=== PATIENT | male | born 1980 | race Caucasian/White ===

== ENCOUNTER 2020-02-18 10:04 | Inpatient (IN) ==
--- NOTE | 2020-02-04 10:01 | PAT Medication Instructions ---
Medication Instructions Date of Service February 04, 2020 Home Medications acetaminophen [Tylenol] 325 mg PO QID PRN aripiprazole [Abilify] 15 mg PO BID atorvastatin 40 mg PO HS buspirone 10 mg PO TID gabapentin 400 mg PO TID ibuprofen 200 mg PO Q6H PRN pantoprazole 20 mg PO HS sertraline [Zoloft] 200 mg PO HS ASK your surgeon for instructions ibuprofen 200 mg PO Q6H PRN Take morning of surgery With a small sip of water, OTHERWISE NOTHING TO EAT OR DRINK AFTER MIDNIGHT: acetaminophen [Tylenol] 325 mg PO QID PRN (okay to take up to 4 hours prior to surgery if needed) aripiprazole [Abilify] 15 mg PO BID buspirone 10 mg PO TID gabapentin 400 mg PO TID Take evening before surgery acetaminophen [Tylenol] 325 mg PO QID PRN (if needed) aripiprazole [Abilify] 15 mg PO BID atorvastatin 40 mg PO HS buspirone 10 mg PO TID gabapentin 400 mg PO TID pantoprazole 20 mg PO HS sertraline [Zoloft] 200 mg PO HS Other Notes If you have any questions please call us at [phone] or [phone] or [phone] or [phone]
--- NOTE | 2020-02-05 12:53 | Anesthesiology Consultation ---
Date of Service February 05, 2020 Assessment & Plan (1) Encounter for pre-operative examination: Chart Review Chart Review: Pending: Refer to Additional Notes / Consult section (pending surgeon ordered PCP clearance and preop Covid testing ) and Patient seen in Pre Admission Testing Informed surgeon's office re: leukocytosis ( will also send preop testing to PCP for review at surgeon ordered PCP clearance scheduled 02/12/20) - Check BSG AM DOS Per PAT appt on 02/05/20, patient traveled to [place] >2 weeks ago. Wears PPE in public. No known Covid positive contacts or Covid related symptoms. Scheduled for preop Covid testing 02/13/20 with surgeon's office. Educated on importance of self quarantining, social distancing and wearing mask in public both for the patient and household contacts. Teaching & Discussion Pre-Anesthesia Teaching/Discussion Notes: Instructed NPO after midnight before surgery,except medications with 15 cc of water. Medication instructions provided according to the PAT guidelines. History Surgery Operation Date: 02/18/20 09:10 Proposed Procedures p L4-S1 Decompression and Fusion, Spinal Cord Monitoring - Abdulkadir Bryant, Height/Weight Height: 5 ft 11 in Weight: 94.4 kg Allergies Allergy/AdvReac Type Severity Reaction Status Date / Time pneumococcal vaccine Allergy Unknown SEVERE Verified 01/30/20 12:20 LYMPH NODE SWELLING trazodone Allergy Unknown Photosensit Verified 01/30/20 12:20 ivity bupropion AdvReac Unknown INTOLERANCE Verified 01/30/20 12:20 Flu Virus Vaccine Allergy Unknown SEVERE Uncoded 01/30/20 12:20 LYMPH NODE SWELLING Medications Home Medications Medication Instructions Recorded Confirmed Last Taken acetaminophen [Tylenol] 325 mg PO QID PRN 01/30/20 01/30/20 Unknown aripiprazole [Abilify] 15 mg PO BID 01/30/20 01/30/20 Unknown atorvastatin 40 mg PO HS 01/30/20 01/30/20 Unknown buspirone 10 mg PO TID 01/30/20 01/30/20 Unknown gabapentin 400 mg PO TID 01/30/20 01/30/20 Unknown ibuprofen 200 mg PO Q6H PRN 01/30/20 01/30/20 Unknown pantoprazole 20 mg PO HS 01/30/20 01/30/20 Unknown sertraline [Zoloft] 200 mg PO HS 01/30/20 01/30/20 Unknown Past Medical History Medical History Asthma No inhalers- well controlled and stable COPD (chronic obstructive pulmonary disease) Controlled and stable Depression Deviated nasal septum Nasal congestion - planning on nasal surgery in the future DM type 2 (diabetes mellitus, type 2) diet controlled Fibromyalgia Chronic pain stable GERD (gastroesophageal reflux disease) Well controlled and stable Hiatal hernia History of pulmonary embolism 2-3 years ago; treated with coumadin; MTHFR- off AC x 1-2 years - no issues Hyperlipidemia IBS (irritable bowel syndrome) MTHFR mutation Follows only with PCP- no AC needed. PTSD (post-traumatic stress disorder) Tinnitus Exercise / Class Metabolic Activity II 4-5 Yardwork/Stairs/Walk up hill (one flight of stairs- no chest pain or SOB ) Past Family History Family History Grandmother No problems noted. Grandmother (Maternal) Esophageal cancer Grandmother (Paternal) Diabetes Other No family history of adverse response to anesthesia Past Surgical History Surgical History History of carpal tunnel release of both wrists History of colonoscopy History of esophagogastroduodenoscopy (EGD) History of lumbar surgery History of myringotomy BMT History of shoulder surgery Rt History of wisdom tooth extraction Past Anesthesia History No Hx of Anesthesia Complications and No Family Hx of Anesthesia Complications History of PONV No Hx of PONV and No Hx of Motion Sickness Social History Smoking Status: Current every day smoker tobacco type: cigarettes Smoking cigarettes per day: 1 ppd Do You Dip or Chew Tobacco: Yes Smoking End Date: 1 can every week Hx Alcohol Use: Yes alcohol intake frequency: holidays/special occasions only Hx Substance Use: No substance use type: does not use Review of Systems Occ snoring- no witnessed apnea. Hx of sleep study 15 years ago- no JP Patient denies chest pain, shortness of breath, dyspnea on exertion, cough, wheezing, palpitations. No hx of seizures, stroke, ME. No hx of blood transfusions Physical Exam Vital Signs VITALS BP 102/68 P 78 TEMP 97.9 SP02 97% RESP 16 Constitutional no acute distress ENMT Mouth: no TMJ clicking Thyromental Distance: > or= 3.5 Finger Breadths (3.5) Mallampati Class: I Missing molars Neck neck extension not limited Respiratory normal respiratory effort; no respiratory distress Auscultation: lungs clear to auscultation bilaterally; no wheezes Cardiovascular Rate/Rhythm: regular rate and regular rhythm Heart Sounds: no murmur Vessels: no carotid bruit Musculoskeletal Spine: no pain with cervical ROM Neurologic moves all extremities Psychiatric Orientation: alert Testing Laboratory Results 02/05/20 13:28 02/05/20 13:28 PT 10.1 Seconds (9.0-12.0) 02/05/20 13:28 INR 1.0 (0.9-1.1) 02/05/20 13:28 APTT 24.8 Seconds (21.0-31.0) 02/05/20 13:28 Hemoglobin A1c 6.1 % (4.5-5.6) H 02/05/20 13:28 Urine Color Yellow 02/05/20 13:28 Urine Appearance Clear (Clear) 02/05/20 13:28 Urine pH 6.5 (4.5-7.5) 02/05/20 13:28 Ur Specific Tyler 1.008 (1.000-1.030) 02/05/20 13:28 Urine Protein Negative (Negative) 02/05/20 13:28 Urine Glucose (UA) Negative (Negative) 02/05/20 13:28 Urine Ketones Negative (Negative) 02/05/20 13:28 Urine Nitrite Negative (Negative) 02/05/20 13:28 Ur Leukocyte Esterase Negative (Negative) 02/05/20 13:28 Blood Type A Positive 02/05/20 13:28 Antibody Screen NEGATIVE 02/05/20 13:28 Electrocardiogram Date: 02/05/20 Findings: + NSR @ (64) Chest X-Ray Date: 01/20/20 Findings: + NAD
[2020-02-05 15:31] LABS: Basophils # (auto) 0.05 K/uL (0-0.2); Basophils % (auto) 0.4 %; Eosinophils # (auto) 0.26 K/uL (0-0.5); Eosinophils % (auto) 1.9 %; Hematocrit (blood only) 46.3 % (42-52); Hemoglobin 15.9 g/dL (14.0-18.0); Immature Granulocytes # (auto) 0.06 K/uL (0.00-0.02); Immature Granulocytes % (auto) 0.4 %; Lymphocytes % (auto) 26.6 %; Mean Corpuscular Hemoglobin 32.3 pg (25-34); Mean Corpuscular Hgb Conc 34.3 g/dL (32-36); Mean Corpuscular Volume 93.9 fL (80-100); Mean Platelet Volume 9.6 fL (7.4-10.4); Monocytes # (auto) 1.25 K/uL (0.11-0.59); Monocytes % (auto) 9.2 %; Neutrophils # (auto) 8.31 K/uL (1.4-6.5); Neutrophils % (auto) 61.5 %; Platelet Count 261 K/uL (130-400); RDW Standard Deviation 44.9 fL (36.4-46.3); Red Blood Count 4.93 M/uL (4.7-6.1); White Blood Count 13.53 K/uL (4.8-10.8)
[2020-02-05 15:37] LABS: BUN Creatinine Ratio 7.3 (10-20); Calcium 9.6 mg/dl (8.5-10.1); Creatinine Clr Calc Pharmacy 107.6 ml/min; Est GFR (African American) 100.5; Est GFR (Non-African American) 86.7; Potassium 4.1 mmol/L (3.5-5.1)
[2020-02-05 15:46] LABS: Partial Thromboplastin Ratio 0.9; Partial Thromboplastin Time 24.8 Seconds (21.0-31.0); Prothrombin Time 10.1 Seconds (9.0-12.0)
[2020-02-05 15:51] LABS: Appearance Urine Clear (Clear); Bilirubin Urine Negative (Negative); Blood Urine Negative (Negative); Color Urine Yellow; Glucose Urine UA Negative (Negative); Ketones Urine Negative (Negative); Leukocyte Esterase Urine Negative (Negative); Nitrite Urine Negative (Negative); Protein Urine Negative (Negative); Specific Gravity Urine 1.008 (1.000-1.030); Urobilinogen Urine Negative (Negative); pH Urine 6.5 (4.5-7.5)
[2020-02-06 06:38] LABS: Estimated Average Glucose 128 mg/dl; Hemoglobin A1C 6.1 % (4.5-5.6)
--- NOTE | 2020-02-06 06:51 | Electrocardiogram Report ---
Test Reason : Blood Pressure : / mmHG Vent. Rate : 064 BPM Atrial Rate : 064 BPM P-R Int : 186 ms QRS Dur : 078 ms QT Int : 374 ms P-R-T Axes : 021 070 066 degrees QTc Int : 385 ms Normal sinus rhythm Normal ECG No previous ECGs available Confirmed by Jareth Atkinson ([id number]) on 02/06/2020 6:50:59 AM Referred By: Abdulkadir Bryant Confirmed By:Jareth Atkinson
[~2020-02-18 10:04] MED LIST: ACETAMINOPHEN 500 MG TAB PO SCH; CEFAZOLIN 2000MG 2,000 MG/15 ML SYR IV SCH; CeleBREX 200 MG CAP PO SCH; GABAPENTIN 900 MG DOSE PO SCH; LR 15ML/HR IV SCH
[2020-02-18] MEDS ORDERED: HYDROmorphone INJ 1 MG/ML SYRINGE IV PRN ×2 (11:10→15:54)
[2020-02-18] MEDS ORDERED: ePHEDrine sulfate 50 MG/ML AMP IV PRN (11:10)
[2020-02-18] MEDS ORDERED: ATROPINE SULFATE 0.1 MG/ML 10ML SYR IV PRN (11:10)
[2020-02-18] MEDS ORDERED: ONDANSETRON INJ 2 MG/ML 2 ML VIAL IV PRN ×2 (11:10→15:54)
--- NOTE | 2020-02-18 11:28 | History & Physical Bridge Note ---
Date of Service February 18, 2020 History & Physical Bridge Note I have examined the patient, reviewed the History & Physical and in the interval since the performance of the History & Physical I have noted the following changes of clinical significance: no changes noted
--- NOTE | 2020-02-18 11:29 | History & Physical Report ---
Date of Service February 18, 2020 Assessment & Plan (1) Neurogenic claudication due to lumbar spinal stenosis: Admission and Anticipated Discharge Date Admission Date: L4-S1 decompression fusion History of Present Illness Chief Complaint: Back and bilateral leg pain Primary Care Provider: Steven Hubbard This is a 39-year-old male who presents with chronic persistent back and leg pain after failed extensive course of nonoperative care is here for surgical intervention. Allergies Allergy/AdvReac Type Severity Reaction Status Date / Time pneumococcal vaccine Allergy Unknown SEVERE Verified 02/18/20 10:34 LYMPH NODE SWELLING trazodone Allergy Unknown Photosensit Verified 02/18/20 10:34 ivity bupropion AdvReac Unknown mood Verified 02/18/20 10:34 instability Flu Virus Vaccine Allergy Unknown SEVERE Uncoded 02/18/20 10:34 LYMPH NODE SWELLING Home Medications Home Medications Medication Instructions Recorded Confirmed Type acetaminophen [Tylenol] 325 mg PO QID PRN 01/30/20 02/18/20 History aripiprazole [Abilify] 15 mg PO BID 01/30/20 02/18/20 History atorvastatin 40 mg PO HS 01/30/20 02/18/20 History buspirone 10 mg PO TID 01/30/20 02/18/20 History gabapentin 400 mg PO TID 01/30/20 02/18/20 History ibuprofen 200 mg PO Q6H PRN 01/30/20 02/18/20 History pantoprazole 20 mg PO HS 01/30/20 02/18/20 History sertraline [Zoloft] 200 mg PO HS 01/30/20 02/18/20 History Past Med/Surg History Medical History Asthma No inhalers- well controlled and stable COPD (chronic obstructive pulmonary disease) Controlled and stable Depression Deviated nasal septum Nasal congestion - planning on nasal surgery in the future DM type 2 (diabetes mellitus, type 2) diet controlled Fibromyalgia Chronic pain stable GERD (gastroesophageal reflux disease) Well controlled and stable Hiatal hernia History of pulmonary embolism 2-3 years ago; treated with coumadin; MTHFR- off AC x 1-2 years - no issues Hyperlipidemia IBS (irritable bowel syndrome) MTHFR mutation Follows only with PCP- no AC needed. PTSD (post-traumatic stress disorder) Tinnitus Surgical History History of carpal tunnel release of both wrists History of colonoscopy History of esophagogastroduodenoscopy (EGD) History of lumbar surgery History of myringotomy BMT History of shoulder surgery Rt History of wisdom tooth extraction Family History Grandmother No problems noted. Grandmother (Maternal) Esophageal cancer Grandmother (Paternal) Diabetes Other No family history of adverse response to anesthesia Social History Smoking Status: Current every day smoker Cigarettes Per Day: 1 ppd; Smoking End Date: 1 can every week; Second Hand Exposure: Yes; Do You Dip or Chew Tobacco: Yes; Tobacco Cessation Education Requested by Patient: No Hx Alcohol Use: Yes Hx Substance Use: No Preferred Language: Dutch Communication Ability: Effective Dining Car Server Required: No Beliefs That Will Affect Care: None Current Living Situation: Parent Feels Safe at Home: Yes Safety Concerns: Feels Safe At This Time Physical Exam Physical Exam: Patient is alert and alert and neurologically intact. Regular rate and rhythm. Lungs clear to auscultation. Results & Data ([facility]) Vital Signs (Past 12 Hours) Vital Signs Temp Pulse Resp BP Pulse Ox 02/18/20 10:31 36.6 C 79 18 129/78 98
[2020-02-18] MEDS ORDERED: BUPIVACAINE/EPINEPHRINE 0.25% 1:200,000 30 ML VIAL ONE (11:45)
[2020-02-18] MEDS ORDERED: BACITRACIN INJ 50,000 UNIT VIAL ONE (11:45)
[2020-02-18] MEDS ORDERED: PROPOFOL IV EMULSION 10 MG/ML 20 ML VIAL IV ONE (11:47)
[2020-02-18] MEDS ORDERED: LIDOCAINE HCL 2% 2 ML VIAL/AMP(20MG/ML) INFIL ONE (11:47)
[2020-02-18] MEDS ORDERED: LARYING-O-JET KIT (LTA) ONE (11:47)
[2020-02-18] MEDS ORDERED: HYDROmorphone INJ 2 MG/ML SYR/VIAL ONE (11:47)
[2020-02-18] MEDS ORDERED: DEXAMETHASONE SOD INJ 4 MG/ML VIAL ONE (11:47)
[2020-02-18] MEDS ORDERED: MIDAZOLAM HCL 1 MG/ML 2ML VIAL ONE (11:47)
[2020-02-18] MEDS ORDERED: ONDANSETRON INJ 2 MG/ML 2 ML VIAL ONE (11:47)
[2020-02-18] MEDS ORDERED: FLOSEAL HEMOSTATIC MATRIX 10ML TOP ONE (12:46)
[2020-02-18] MEDS ORDERED: ePHEDrine sulfate 50 MG/ML SYR ONE (12:55)
--- NOTE | 2020-02-18 13:59 | Operative Report ---
Post Operative Report Pre & Post Diagnosis Operation Date: 02/18/20 11:55 Pre-Op Diagnosis: Neurogenic claudication due to lumbar spinal stenosis Post-Op Diagnosis: Neurogenic claudication due to lumbar spinal stenosis I identified the patient and participated in the time-out.: Yes Procedure Operation Date: 02/18/20 11:55 Actual Procedures #1 revision decompression with bilateral medial facetectomies foraminotomies L4- 5 and L5-S1. #2 posterior spinal fusion L4-5 L5-S1. #3 placement posterior instrumentation L4-5 L5-S1. #4 interbody fusion L4-5 L5-S1. #5 placement peek cage 12 x 26 mm at L4-5 and 9 x 26 mm at L5-S1. #6 placement of locally harvested morselized autograft in the posterior lateral gutters. #7 placement infuse collagen sponge and master graft in the posterior lateral gutters and ostial amp and interbody space. Surgeon Abdulkadir Bryant, Preschool Paraprofessional Tabitha Boles Estimated Blood Loss 100 Findings Consistent with Post-Op Diagnosis Specimens None Indications This is a 39-year-old male who presents above-mentioned diagnosis after failing extensive course of nonoperative care is here for surgical invention. Description of Procedure Patient was met with identified informed consent obtained. Patient was then taken to the operative suite underwent an patient placed in a prone position the Corky table on top of the Jean frame. All bony prominences well-padded eyes inspected to ensure no external pressure placed upon them. This point the lumba r spine is prepped and draped in normal sterile fashion. Sharp dissection with assistance of Bovie cautery was performed down to and exposing the remaining lamina and transverse processes of L4-L5 and sacral ala bilaterally. From a caudal cephalad fashion revision complete laminectomy L5 and L4 was performed including bilateral medial facetectomies and foraminotomies addressing all neural compression. Pedicle screws then placed in L4-L5 and S1 levels bilaterally with assistance of fluoroscopy the proper sized nigel placed. By way of a trans-foramen approach on the right a complete discectomy of L 5 S1 was performed endplates curetted to subcortical being bone and a 9 x 26 mm peek cage filled with osteo-bone graft tapped in position. Then proceeded L4-[address] of a transforaminal approach on the right complete discectomy performed endplates coated to subcortical bleeding bone and a 12 x 26 mm peek cage filled with osteo-bone graft tapped in position. The rods and locked in final position bilaterally. The transverse processes of L4-L5 and the sacral ala burred to subcortical bleeding bone. Infuse collagen sponge master graft and local autograft placed in the posterior lateral gutters. 10 round VINCENT drain inserted. The incision was then closed with 1 Vicryl the fascia 2-0 Vicryl subcutaneously and 4 Monocryl for final skin closure. Steri-Strip sterile dressings placed. Patient waken taken PACU stable condition. Please note Tabitha Boles was present at the entire procedure involved the patient positioning complex portions of the surgery and fascial closure. Lastly spinal cord monitoring was utilized at the procedure no changes noted. I attest to the content of the Intraoperative Record and any orders documented therein. Any exceptions are noted below.
--- NOTE | 2020-02-18 14:04 | Fluoroscopy Report ---
INTRAOPERATIVE RADIOGRAPHS CLINICAL HISTORY: L4-S1 spinal fusion. Fluoroscopy time: 18 seconds. FINDINGS: 2 spot fluoroscopic views of the lumbar spine are presented. There has been discectomy at L 4-L5 and L5-S1 with laminectomy and posterior fusion from L4-S1. Interpedicular screws are seen at al l levels. The orthopedic hardware appears intact. IMPRESSION: Intraoperative images from L4-S1 spinal fusion surgery as above. Electronically signed by: Leonardo Tinoco M.D. 02/18/2020 2:03 PM
--- NOTE | 2020-02-18 14:40 | Anesthesiology Progress Note ---
Date of Service February 18, 2020 Anesthesia Post Procedure Vital Signs Vital Signs: Temp Pulse Pulse Resp BP BP Pulse Ox 02/18/20 14:15 98.8 F 71 12 110/68 98 02/18/20 10:31 97.9 F 79 18 129/78 98 Pain Intensity Lower Back: Pain Intensity: 4 Transfer of Care Handoff Completed per policy Notes Mental Status: alert / awake / arousable and participated in evaluation Patient Amnestic to Procedure: Yes Nausea / Vomiting: adequately controlled Pain: adequately controlled Airway Patency, RR, SpO2: stable & adequate BP & HR: stable & adequate Hydration State: stable & adequate Anesthetic Complications: no major complications apparent and Pt Satisfied with anesthetic care
[2020-02-18] MEDS: fentaNYL citrate 100 MCG/2 ML VIAL IV PRN ×3 (14:41→15:07)
[2020-02-18] MEDS ORDERED: SOD PHOSPHATE/SOD BIPHOSPHATE ENEMA 132 ML BTL PR PRN (15:54)
[2020-02-18] MEDS ORDERED: ACETAMINOPHEN 1,000 MG/100 ML VIAL IV PRN (15:54)
[2020-02-18] MEDS ORDERED: NALOXONE HCL 0.4 MG/1 ML VIAL/CARP IV PRN (15:54)
[2020-02-18] MEDS ORDERED: TRAMADOL HCL 50 MG TABLET PO PRN (15:54)
[2020-02-18] MEDS ORDERED: LORazepam 0.5 MG TAB PO PRN (15:54)
[2020-02-18] MEDS ORDERED: DO NOT ADMINISTER PNEUMOCOCCAL VACCINE PRN (15:54)
[2020-02-18] MEDS ORDERED: HYDROmorphone INJ 0.5 MG/0.5 ML SYR IV PRN (15:54)
[2020-02-18] MEDS ORDERED: MAGNESIUM HYDROXIDE SUSP 30 ML UDC PO PRN (15:54)
[2020-02-18] MEDS ORDERED: METOCLOPRAMIDE HCL INJ 5 MG/ML 2 ML VIAL IV PRN (15:54)
[2020-02-18] MEDS ORDERED: ONDANSETRON 4 MG OD TAB PO PRN (15:54)
[2020-02-18] MEDS ORDERED: bisacodyL 10 MG SUPP PR PRN (15:54)
[2020-02-18] MEDS ORDERED: PROMETHAZINE HCL 12.5 MG in SODIUM CHLORIDE 0.9% 50 ML IV PRN (15:54)
[2020-02-18] MEDS ORDERED: ALUMINUM/MAGNESIUM SUSP 30 ML UDC PO PRN (15:54)
[2020-02-18] MEDS ORDERED: LORazepam 0.5 MG/1 ML VIAL IV PRN (15:54)
[2020-02-18] MEDS ORDERED: FAMOTIDINE 20 MG TAB PO PRN (15:54)
[2020-02-18] MEDS ORDERED: DO NOT ADMINISTER FLU VACCINE PRN (15:54)
[2020-02-18] MEDS: GABAPENTIN 400 MG CAP PO SCH ×2 (17:00→21:52)
[2020-02-18] MEDS: KETOROLAC 30 MG/ML VIAL IV SCH ×2 (17:22→23:38)
[2020-02-18] MEDS: LACTATED RINGER'S 1,000 ML IV SCH ×2 (17:23→23:37)
[2020-02-18] MEDS: CEFAZOLIN 2000MG 2,000 MG/15 ML SYR IV SCH (19:34)
[2020-02-18] MEDS: OXYCODONE HCL IR 5 MG TAB (IMMEDIATE RELEASE) PO PRN (19:34)
[2020-02-18] MEDS: SERTRALINE HCL 100 MG TABLET PO SCH (19:34)
[2020-02-18] MEDS: ATORVASTATIN 40 MG TAB PO SCH (19:35)
[2020-02-18] MEDS: PANTOprazole 40 MG TAB PO SCH (19:35)
[2020-02-18] MEDS: DOCUSATE SODIUM/SENNA 50/8.6MG TAB PO SCH (19:35)
[2020-02-18] MEDS: ARIPiprazole 15 MG TAB PO SCH (19:35)
[2020-02-18] MEDS ORDERED: PHARMACY GLYCEMIC MGMT CONSULT PRN (21:35)
[2020-02-18] MEDS: INSULIN ASPART 100 UNITS/ML 3 ML PEN SC SCH (23:46)
[2020-02-19] MEDS: INSULIN ASPART 100 UNITS/ML 3 ML PEN SC SCH ×5 (04:40→20:45)
[2020-02-19] MEDS: KETOROLAC 30 MG/ML VIAL IV SCH ×2 (04:40→10:33)
[2020-02-19] MEDS: CEFAZOLIN 2000MG 2,000 MG/15 ML SYR IV SCH (04:43)
[2020-02-19] MEDS: POLYETHYLENE (MIRALAX) 17 GM PACK PO SCH ×3 (04:59→17:40)
[2020-02-19 06:31] LABS: Basophils # (auto) 0.01 K/uL (0-0.2); Hematocrit (blood only) 35.6 % (42-52); Hemoglobin 12.2 g/dL (14.0-18.0); Immature Granulocytes # (auto) 0.07 K/uL (0.00-0.02); Immature Granulocytes % (auto) 0.3 %; Lymphocytes # (auto) 2.21 K/uL (1.2-3.4); Lymphocytes % (auto) 10.6 %; Mean Corpuscular Hemoglobin 31.8 pg (25-34); Mean Corpuscular Hgb Conc 34.3 g/dL (32-36); Mean Corpuscular Volume 92.7 fL (80-100); Monocytes # (auto) 1.41 K/uL (0.11-0.59); Monocytes % (auto) 6.8 %; Neutrophils # (auto) 17.08 K/uL (1.4-6.5); Neutrophils % (auto) 82.3 %; Platelet Count 220 K/uL (130-400); RDW Coefficient of Variation 12.9 % (11.5-14.5); RDW Standard Deviation 43.5 fL (36.4-46.3); Red Blood Count 3.84 M/uL (4.7-6.1); White Blood Count 20.78 K/uL (4.8-10.8)
[2020-02-19 07:05] LABS: BUN Creatinine Ratio 12.5 (10-20); Calcium 8.7 mg/dl (8.5-10.1); Creatinine Clr Calc Pharmacy 101.8 ml/min; Est GFR (African American) 95.1; Potassium 3.8 mmol/L (3.5-5.1)
[2020-02-19] MEDS: ARIPiprazole 15 MG TAB PO SCH ×2 (07:24→20:17)
[2020-02-19] MEDS: GABAPENTIN 400 MG CAP PO SCH ×3 (07:25→20:17)
[2020-02-19] MEDS ORDERED: Nursing to Pharmacy Communication SCH (07:45)
--- NOTE | 2020-02-19 08:38 | Orthopedic Progress Note ---
Date of Service February 19, 2020 Assessment & Plan (1) Neurogenic claudication due to lumbar spinal stenosis: Admission and Anticipated Discharge Date Admission Date: February 18, 2020 At this time we will continue physical therapy monitor VINCENT output anticipate discharge home the next few days. Subjective Back pain controlled leg pain markedly improved. Physical Exam Physical Exam: Patient is good strength testing appears comfortable. Results & Data ([facility]) Vital Signs (Past 12 Hours) Vital Signs Temp Pulse Pulse Resp BP BP Pulse Ox 02/19/20 07:40 36.7 C 66 16 97/59 L 96 02/19/20 04:20 36.7 C 75 14 94/54 L 97 02/18/20 23:49 36.9 C 70 14 94/56 L 97/58 L 95
[2020-02-19] MEDS ORDERED: NovoLIN-N (NPH) PER UNIT CHARGE SQ ONE (09:00)
[2020-02-19] MEDS: DEXAMETHASONE SOD PHOSPHATE 8 MG in SYRINGE 0 ML IV SCH (09:10)
--- NOTE | 2020-02-19 11:13 | Pharmacy Report ---
Pharmacy Glycemic Short Note 2 - Date of Service February 19, 2020 - Glycemic Short BSG Results (Last 24 hours): 02/18/20 02/18/20 02/18/20 14:15 20:39 23:41 Glucose POC Glucose 130 H 211 H 158 H 02/19/20 02/19/20 02/19/20 04:39 06:00 08:23 Glucose 133 H POC Glucose 149 H 138 H OUTPATIENT ANTIDIABETIC REGIMEN: * N/A- diet controlled (previous insulin use) * A1c 6.1% 02/05/20 ASSESSMENT: * Mr. Dominguez is not currently on any pharmacological anti-diabetes medications, controlled with diet * Patient received 8 mg of dexamethasone IV in the OR yesterday and is now ordered 8 mg IV daily * BSG elevated last night but was corrected well with novolog, given ongoing dexamethasone will give 1x dose of NPH ~0.2 units/kg this morning- this is reduced from the typical 0.4 units/kg as patient BSGs close to ranged yesterday without. Further doses will be determine by BSG trend * Will continue current novolog parameters carb ratio weight based stress of 3 and correction factor 20. PLAN FOR INPATIENT GLYCEMIC CONTROL: * Hold outpatient oral diabetes medications * Basal insulin * NPH 18 units x 1 this AM * Bolus insulin * NovoLog per scale ACHS or Q6hrs while NPO * Goal Range: Low 110 mg/dL - High 140 mg/dL * Correction Factor: 20 mg/dL/unit * Nutritional / Prandial insulin per carb ratio of 1 unit per 6 grams CHO consumed PLAN FOR DISCHARGE: * Patient's A1c 6.1% within goal range, continue current outpatient treatment.
[2020-02-19] MEDS: OXYCODONE HCL IR 5 MG TAB (IMMEDIATE RELEASE) PO PRN ×2 (11:52→16:20)
[2020-02-19] MEDS ORDERED: NICOTINE 21 MG/24 HR TDSY TD ONE (14:30)
[2020-02-19] MEDS: ACETAMINOPHEN 500 MG TAB PO PRN (15:02)
[2020-02-19] MEDS: ATORVASTATIN 40 MG TAB PO SCH (20:17)
[2020-02-19] MEDS: SERTRALINE HCL 100 MG TABLET PO SCH (20:17)
[2020-02-19] MEDS: DOCUSATE SODIUM/SENNA 50/8.6MG TAB PO SCH (20:17)
[2020-02-19] MEDS: PANTOprazole 40 MG TAB PO SCH (20:17)
[2020-02-19] MEDS ORDERED: INSULIN ASPART 100 UNITS/ML 3 ML PEN SC SCH (22:00)
[2020-02-20] MEDS: ACETAMINOPHEN 500 MG TAB PO PRN (00:02)
[2020-02-20] MEDS: POLYETHYLENE (MIRALAX) 17 GM PACK PO SCH ×4 (00:03→17:08)
[2020-02-20] MEDS: DEXAMETHASONE SOD PHOSPHATE 8 MG in SYRINGE 0 ML IV SCH (07:23)
[2020-02-20] MEDS: OXYCODONE HCL IR 5 MG TAB (IMMEDIATE RELEASE) PO PRN ×3 (07:24→23:30)
[2020-02-20] MEDS: ARIPiprazole 15 MG TAB PO SCH ×2 (07:24→20:02)
[2020-02-20] MEDS: GABAPENTIN 400 MG CAP PO SCH ×3 (07:25→20:02)
[2020-02-20] MEDS: NICOTINE 21 MG/24 HR TDSY TD SCH (07:26)
[2020-02-20] MEDS: INSULIN ASPART 100 UNITS/ML 3 ML PEN SC SCH ×4 (08:06→20:06)
[2020-02-20] MEDS ORDERED: NovoLIN-N (NPH) PER UNIT CHARGE SQ ONE (09:00)
--- NOTE | 2020-02-20 09:53 | Pharmacy Report ---
Pharmacy Glycemic Short Note 2 - Date of Service February 20, 2020 - Glycemic Short BSG Results (Last 24 hours): 02/19/20 02/19/20 02/19/20 12:21 17:06 20:35 POC Glucose 154 H 159 H 119 H 02/20/20 06:33 POC Glucose 139 H OUTPATIENT ANTIDIABETIC REGIMEN: * N/A- diet controlled (previous insulin use) * A1c 6.1% 02/05/20 ASSESSMENT: 02/19 * Patient received 53 units of insulin yesterday; NPH 18 units for dexamethasone 8 mg IV * Patient had adequate glycemic control yesterday with no BSGs above 160 mg/dL * Dexamethasone 8 mg IV daily continues, will continue current insulin dosing 02/18 * Mr. Dominguez is not currently on any pharmacological anti-diabetes medications, controlled with diet * Patient received 8 mg of dexamethasone IV in the OR yesterday and is now ordered 8 mg IV daily * BSG elevated last night but was corrected well with novolog, given ongoing dexamethasone will give 1x dose of NPH ~0.2 units/kg this morning- this is reduced from the typical 0.4 units/kg as patient BSGs close to ranged yesterday without. Further doses will be determine by BSG trend * Will continue current novolog parameters carb ratio weight based stress of 3 and correction factor 20. PLAN FOR INPATIENT GLYCEMIC CONTROL: * Hold outpatient oral diabetes medications * Basal insulin * NPH 18 units x 1 this AM * Bolus insulin * NovoLog per scale ACHS or Q6hrs while NPO * Goal Range: Low 110 mg/dL - High 140 mg/dL * Correction Factor: 20 mg/dL/unit * Nutritional / Prandial insulin per carb ratio of 1 unit per 6 grams CHO consumed PLAN FOR DISCHARGE: * Patient's A1c 6.1% within goal range, continue current outpatient treatment.
--- NOTE | 2020-02-20 10:30 | Orthopedic Progress Note ---
Date of Service February 20, 2020 Assessment & Plan (1) Neurogenic claudication due to lumbar spinal stenosis: Admission and Anticipated Discharge Date Admission Date: February 18, 2020 At this time I am going to maintain the VINCENT drain another 24 hours. Anticipate discharge home tomorrow. Subjective Patient's back pain is controlled leg pain markedly improved. Physical Exam Physical Exam: Patient standing ambulating halls has good strength testing. Results & Data ([facility]) Vital Signs (Past 12 Hours) Vital Signs Temp Pulse Resp BP Pulse Ox 02/20/20 07:22 36.4 C L 63 16 114/69 96 02/20/20 06:34 36.4 C L 63 14 110/70 96 02/19/20 23:45 36.7 C 72 14 101/62 94
[2020-02-20] MEDS: DOCUSATE SODIUM/SENNA 50/8.6MG TAB PO SCH (20:02)
[2020-02-20] MEDS: ATORVASTATIN 40 MG TAB PO SCH (20:02)
[2020-02-20] MEDS: PANTOprazole 40 MG TAB PO SCH (20:02)
[2020-02-20] MEDS: SERTRALINE HCL 100 MG TABLET PO SCH (20:03)
[2020-02-21] MEDS: DEXAMETHASONE SOD PHOSPHATE 8 MG in SYRINGE 0 ML IV SCH (08:44)
[2020-02-21] MEDS: GABAPENTIN 400 MG CAP PO SCH (08:44)
[2020-02-21] MEDS: ARIPiprazole 15 MG TAB PO SCH (08:45)
[2020-02-21] MEDS: NICOTINE 21 MG/24 HR TDSY TD SCH (08:45)
[2020-02-21] MEDS: INSULIN ASPART 100 UNITS/ML 3 ML PEN SC SCH (08:46)
[2020-02-21] MEDS ORDERED: NovoLIN-N (NPH) PER UNIT CHARGE SQ ONE (09:00)
--- NOTE | 2020-02-21 09:49 | Discharge Summary ---
Date of Service February 21, 2020 Admission HPI Per Admitting Provider This is a 39-year-old male who presents with chronic persistent back and leg pain after failed extensive course of nonoperative care is here for surgical intervention. Principal Diagnosis Lumbar spinal stenosis with neurogenic claudication Discharge Data Allergies Allergy/AdvReac Type Severity Reaction Status Date / Time pneumococcal vaccine Allergy Unknown SEVERE Verified 02/18/20 10:34 LYMPH NODE SWELLING trazodone Allergy Unknown Photosensit Verified 02/18/20 10:34 ivity bupropion AdvReac Unknown mood Verified 02/18/20 10:34 instability Flu Virus Vaccine Allergy Unknown SEVERE Uncoded 02/18/20 10:34 LYMPH NODE SWELLING Consultations 02/18/20 15:54 Consult Case Management - Discharge Planning Routine Procedures Performed Operation Date: 02/18/20 11:55 Actual Procedures p L4-S1 Decompression and Fusion, Interbody Cage Insertion L4-L5 and L5-S1, Spinal Cord Monitoring(Not Applicable) - Abdulkadir Bryant DO Ordered Studies 02/18/20 11:55 FL fluoroscopy <1hr Routine FL lumbar spine 2-3V Routine Hospital Course (1) Neurogenic claudication due to lumbar spinal stenosis: Patient went lumbar decompression fusion tolerated so was taken to orthopedic for possibly. Postop day 1 is up and ambulating progressed to postop day 2 on postop 3 back pain controlled leg pain improved excellent strength testing subsequent discharge home. Discharge orders instructions from the chart for further review. Total Time Total Time Spent Total Time Spent (In Minutes): 20 minutes Discharge Plan Discharge Items Patient Disposition: Home - Self-Care Reason For Visit: Thoracolumbar and Lumbosacral Disc Disorder Discharge Diagnosis: Lumbar spinal stenosis with neurogenic claudication Activity: As commented below Non-emergency contact: Primary Care Provider Call non-emergency contact if: you have any medication questions Follow-up/Referrals: Steven Hubbard [Primary Care Provider] - Diet: Regular Addtl Attending Provider Instructions: ACTIVITY RECOMMENDATIONS: SELF CARE INSTRUCTIONS AFTER THORACIC/LUMBAR FUSIONS 1. You may walk to your tolerance. It is good exercise for your legs and back. Expect some back and intermittent leg aches and pains. 2. You may perform "counter-top" level activities (make a sandwich, jovani with a project, etc.). 3. No bending or lifting of more than 10 pounds or back twisting of any nature (roll like a log when turning in bed). 4. You may ride in a car for 20-30 minutes at a time. No driving until after your first visit with your doctor. 5. Frequent changes of position and restricting sitting to 30 minutes at a time will help limit the amount of back spasms and stiffness you may experience. 6. You may discontinue the use of ambulatory aids (cane, crutches, etc.) once your strength and confidence allow. 7. You may rehabilitation program coordinator the shower and let water strike your incision when you arrive home at least once daily. Do not take a tub bath, sit in a hot tub or go into a swimming pool until after your first recheck in the office. SPECIAL CARE INSTRUCTIONS: VERY IMPORTANT TO READ AND REVIEW A. Your surgical incision has been closed with a cosmetic suture under the skin that will dissolve in about 6 weeks. In 14 days, you can use a pair of clean scissors and cut the suture that is left outside of the skin at the ends of your incision. 1. The small skin tapes can be removed 7 days after surgery if they have not fallen off by that point. 2. You may keep the wound open to air as much as possible to promote healing after post-op day number 5 unless told otherwise by your doctor. 3. If you think the wound looks like it is becoming infected (redness or worsening drainage) and/or you are experiencing fever, chill or worsening back pain and muscle spasms, contact the office so that we may evaluate you as soon as possible. B. Complications are uncommon, but please contact us if you have any signs or symptoms of: 1. wound infection (fever higher than 102.5 degrees F, redness, separation of wound, drainage, or increasing pain from the incision) 2. blood clots in legs (pain, swelling, redness and warmth in legs) 3. urinary tract infection (fever higher than 102.5 degrees F, burning upon urination or increased frequency of urination) 4. nerve problems (inability to walk on your toes or heels, numbness, loss of bowel or bladder control) 5. any other symptoms that concern you C. Please call the office at if you have any concerns or questions about your operation or recovery. D. No smoking! Smoking drastically decreases the chance of a solid fusion. E. Do not take any anti-inflammatory medications (Indocin, Advil, Motrin, Aspirin, Naprosyn, etc.) as these may inhibit the chance of a solid fusion. Tylenol is okay to take for pain. MANAGING PAIN AFTER SPINAL SURGERY 1. Narcotic medication is intended for short-term use and will be provided for surgical pain. Surgical pain usually lasts for a period of 4-6 weeks. Narcotic medication includes Percocet, Vicodin, Darvocet, Tylenol #3 or Lortab. 2. Longer-term pain is more appropriately treated with non-narcotic medication such as Tylenol ES. 3. Muscle spasm is not appropriately treated with narcotics. Muscle relaxers such as Soma, Flexeril or Skelaxin can be used along with Tylenol ES. 4. Remember that we all live with some "aches and pains". This is not unusual or uncommon after an injury or as we get older. a. Back pain is expected and may include muscle spasms for 4 to 6 weeks after surgery. The pain should gradually improve. If the pain worsens for no apparent reason, please contact the office. b. Intermittent leg pain may also be experienced and should not be concerned about unless it worsens for no apparent reason. If so, please contact the office. 5. We will provide appropriate medication within the normal guidelines of their prescribed use. We will also be very cautious and aware of potential abuse and extended duration of patients' medication needs. a. Pain medications are for your comfort and to assist with sleep and rest so that the tissue can heal. They are not provided in order to return to normal activity and should not be used through the day. To do so or worsening pain at night can result from ongoing tissue damage and development of tolerance to the prescribed medicine. 6. Please allow 2-3 days to process refills. Prescriptions will not be mailed but must be picked up at the office. FOLLOW UP VISIT: Keep your scheduled follow-up appointment. Any questions, please call the office at . Pending Studies at Discharge: No Stand-Alone Forms: [employer], Smoking Cessation Medications and DC Order Prescriptions: New tramadol 50 mg tablet 50 mg PO Q6H PRN (Reason: pain, moderate) Qty: 20 RF: 0 oxycodone 5 mg tablet 5 mg PO Q6H PRN (Reason: pain, severe) Qty: 20 RF: 0 Continued atorvastatin 40 mg Tablet 40 mg PO HS RF: 0 acetaminophen [Tylenol] 325 mg Tablet 325 mg PO QID PRN (Reason: Pain) RF: 0 gabapentin 400 mg Capsule 400 mg PO TID RF: 0 sertraline [Zoloft] 100 mg Tablet 200 mg PO HS RF: 0 pantoprazole 20 mg Tablet,Delayed Release (Dr/Ec) 20 mg PO HS RF: 0 buspirone 10 mg Tablet 10 mg PO TID RF: 0 aripiprazole [Abilify] 15 mg Tablet 15 mg PO BID RF: 0 Discontinued ibuprofen 200 mg Tablet 200 mg PO Q6H PRN (Reason: Pain) RF: 0 Discharge Orders: Discharge Order (Routine); Ordered 02/21/20 Ordered By: Abdulkadir Lynch/Other Patient Handouts: High Blood Sugar (Hyperglycemia), Managing Type 2 Diabetes, A1C Admission Data Admit Date/Time: 02/18/20 14:49 Attending Provider: Abdulkadir Bryant Admit Provider: Abdulkadir Bryant Primary Care Provider: Steven Hubbard
[2020-02-21] MEDS: OXYCODONE HCL IR 5 MG TAB (IMMEDIATE RELEASE) PO PRN (11:19)
== END 2020-02-21 12:18 | disposition home or self-care (01) | DRG 455 ==
LOC: ASU 10:04 → 3E 14:49

== ENCOUNTER 2020-02-24 09:44 | Inpatient (IN) ==
[2020-02-24] MEDS ORDERED: HYDROmorphone INJ 1 MG/ML SYRINGE IV PRN (11:03)
[2020-02-24] MEDS ORDERED: LORazepam 1 MG/2 ML VIAL IV PRN (11:03)
[2020-02-24] MEDS ORDERED: TRAMADOL HCL 50 MG TABLET PO PRN (11:03)
[2020-02-24] MEDS ORDERED: HYDROmorphone INJ 0.5 MG/0.5 ML SYR IV PRN (11:03)
[2020-02-24] MEDS ORDERED: ONDANSETRON INJ 2 MG/ML 2 ML VIAL IV PRN (11:03)
[2020-02-24] MEDS ORDERED: ONDANSETRON 4 MG OD TAB PO PRN (11:03)
[2020-02-24] MEDS ORDERED: PROMETHAZINE HCL 12.5 MG in SODIUM CHLORIDE 0.9% 50 ML IV PRN (11:03)
[2020-02-24] MEDS ORDERED: METOCLOPRAMIDE HCL INJ 5 MG/ML 2 ML VIAL IV PRN (11:03)
[2020-02-24] MEDS ORDERED: LORazepam 1 MG TAB PO PRN (11:03)
[2020-02-24] MEDS: OXYCODONE HCL IR 5 MG TAB (IMMEDIATE RELEASE) PO PRN ×2 (12:13→18:49)
[2020-02-24] MEDS: ACETAMINOPHEN 500 MG TAB PO PRN ×2 (12:14→23:41)
[2020-02-24] MEDS ORDERED: GADOBUTROL 65ML VIAL IV ONE (12:51)
--- NOTE | 2020-02-24 13:31 | Magnetic Resonance Report ---
MR lumbar spine wo/w con CLINICAL HISTORY: 39 years-old Male with post op headache. Patient presents with acute low back pain with recent fall. History of lumbar spine fusion 6 days prior. Patient also complains of numbness wi thin the right lower extremity. COMPARISON: Fluoroscopic images of the lumbar spine 02/18/2020 TECHNIQUE: Multiplanar, multi sequence MRI of the lumbar spine was performed both with and without th e use of 8.5 mL Gadavist FINDINGS: The hand presser localizer images demonstrate no gross extraspinal abnormality. Signal within the thoracic s brian cord appears unremarkable. Conus medullaris terminates at L1. There is a tiny 1 mm lipoma of th e filum terminale. There is an enhancing nerve root on the right lateral aspect of the filum terminal is on the postcontrast images. Questioned clumping of the nerve roots. Postoperative changes of recen t laminectomy with posterior interbody nigel and screw fusion and discectomy at L4-S1. Satisfactory ali gnment. No acute fracture, subluxation or vertebral bone marrow edema. There is fluid signal noted wi thin the L5-S1 disc space with posterior annular disc bulge as below. Peripherally enhancing fluid co llection within the deep operative bed measures up to 2.7 x 3.7 x 6.6 cm in AP, transverse and singh l, dimensions. There is moderate edema and enhancement within the adjacent paraspinal musculature. No acute intra-abdominal abnormality or adenopathy. Mild multilevel facet arthrosis. No definite epidur al abscess. T12-L1: No central canal or neural foraminal stenosis. L1-L2: No central canal or neural foraminal stenosis. L2-L3: No central canal or neural foraminal stenosis. L3-L4: Moderate facet arthrosis with ligamentum flavum thickening. No central canal or foraminal kathy rowing. L4-L5: Discectomy changes with laminectomy. There is mass effect upon the right posterior aspect of the thecal sac secondary to the postoperative fluid collection. There is mild central canal stenosis, AP dimension of the thecal sac measuring approximately 8 mm. Mild right lateral recess narrowing. Mi ld inferior bilateral foraminal narrowing. L5-S1: Discectomy changes with laminectomy. Facet arthrosis and ligamentum flavum thickening. Subopt imally evaluated level secondary to artifact from the hardware. Fluid collection extends into the rig ht posterolateral thecal space resulting in at least moderate right lateral recess narrowing. No sign ificant central canal stenosis. Mild bilateral foraminal narrowing. IMPRESSION: 1. Postoperative changes of recent laminectomy, posterior interbody nigel and screw fusion and discecto my at L4-S1. There is satisfactory alignment without acute fracture. 2. Moderate enhancing edema within the paraspinal musculature at the operative bed is likely reactive . Peripherally enhancing fluid collection within the posterior operative bed measuring up to 6.6 cm i n length is suggestive of a probable seroma. A developing abscess could appear similarly. No definite epidural abscess. 3. Small lipoma of the filum terminale. 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 4. No high-grade central canal or foraminal narrowing. ACT 112: Negative or not required by law. The above report was generated using voice recognition software. It may contain grammatical, syntax o r spelling errors. Electronically signed by: Yoan Burris M.D. 02/24/2020 1:30 PM
[2020-02-24] MEDS: DOCUSATE SODIUM 100 MG CAP PO SCH ×2 (13:43→21:04)
[2020-02-24] MEDS: LACTATED RINGER'S 1,000 ML IV SCH (13:43)
[2020-02-25] MEDS: LACTATED RINGER'S 1,000 ML IV SCH ×4 (01:56→22:04)
[2020-02-25] MEDS: OXYCODONE HCL IR 5 MG TAB (IMMEDIATE RELEASE) PO PRN ×3 (05:23→20:53)
[2020-02-25] MEDS ORDERED: CEFAZOLIN 2000MG 2,000 MG/15 ML SYR IV SCH (06:00)
--- NOTE | 2020-02-25 07:39 | History & Physical Report ---
Date of Service February 25, 2020 Assessment & Plan (1) Headache, spinal, postoperative: Admission and Anticipated Discharge Date Admission Date: February 24, 2020 Irrigation debridement of lumbar spine with repair of possible durotomy History of Present Illness Chief Complaint: Headache status post lumbar decompression fusion. Primary Care Provider: Steven Hubbard This is a 39-year-old male well-known to me the presents with severe headache postop day 3. He had undergone lumbar decompression and fusion L for 5 L5-S1. This was a revision procedure. He had done very nicely postoperatively and was discharged postop day 3 without issue. That evening he began experiencing severe postural occipital and frontal headaches. He gets some relief with lying supine. He denied any significant back pain or radicular complaints. I seen in my office yesterday morning confirmed suspicion for headache related to CSF leak and promptly admitted the patient to the hospital for I&D and exploration of the surgical bed. Allergies Allergy/AdvReac Type Severity Reaction Status Date / Time pneumococcal vaccine Allergy Unknown SEVERE Verified 02/18/20 10:34 LYMPH NODE SWELLING trazodone Allergy Unknown Photosensit Verified 02/18/20 10:34 ivity bupropion AdvReac Unknown mood Verified 02/18/20 10:34 instability Flu Virus Vaccine Allergy Unknown SEVERE Uncoded 02/18/20 10:34 LYMPH NODE SWELLING Home Medications Home Medications Medication Instructions Recorded Confirmed Type acetaminophen [Tylenol] 325 mg PO QID PRN 01/30/20 02/24/20 History aripiprazole [Abilify] 15 mg PO BID 01/30/20 02/24/20 History atorvastatin 40 mg PO HS 01/30/20 02/24/20 History buspirone 10 mg PO TID 01/30/20 02/24/20 History gabapentin 400 mg PO TID 01/30/20 02/24/20 History pantoprazole 20 mg PO HS 01/30/20 02/24/20 History sertraline [Zoloft] 200 mg PO HS 01/30/20 02/24/20 History oxycodone 5 mg PO Q6H PRN #20 tab 02/21/20 02/24/20 Rx tramadol 50 mg PO Q6H PRN #20 tab 02/21/20 02/24/20 Rx Past Med/Surg History Medical History (Updated 02/25/20 @ 07:38 by Abdulkadir M Annette, DO) Asthma No inhalers- well controlled and stable COPD (chronic obstructive pulmonary disease) Controlled and stable Depression Deviated nasal septum Nasal congestion - planning on nasal surgery in the future DM type 2 (diabetes mellitus, type 2) diet controlled Fibromyalgia Chronic pain stable GERD (gastroesophageal reflux disease) Well controlled and stable Hiatal hernia History of pulmonary embolism 2-3 years ago; treated with coumadin; MTHFR- off AC x 1-2 years - no issues Hyperlipidemia IBS (irritable bowel syndrome) MTHFR mutation Follows only with PCP- no AC needed. PTSD (post-traumatic stress disorder) Tinnitus Surgical History History of carpal tunnel release of both wrists History of colonoscopy History of esophagogastroduodenoscopy (EGD) History of lumbar surgery History of myringotomy BMT History of shoulder surgery Rt History of wisdom tooth extraction Family History Grandmother No problems noted. Grandmother (Maternal) Esophageal cancer Grandmother (Paternal) Diabetes Other No family history of adverse response to anesthesia Social History Smoking Status: Current every day smoker Cigarettes Per Day: 20; Second Hand Exposure: No; Do You Dip or Chew Tobacco: No; Tobacco Cessation Education Requested by Patient: No Hx Alcohol Use: Yes Alcohol type: beer Hx Substance Use: No Preferred Language: Occitan Communication Ability: Effective Photostat Operator Helper Required: No Beliefs That Will Affect Care: None marital status: Current Living Situation: Spouse Other Information That Helps Us Care for You: No Feels Safe at Home: Yes Safety Concerns: Feels Safe At This Time Assistive Devices: Glasses Physical Exam Physical Exam: Patient is alert and oriented neurologically intact. Heart regular in rhythm. Lungs clear to auscultation. Results & Data ([facility]) Vital Signs (Past 12 Hours) Vital Signs Temp Pulse Resp BP Pulse Ox 02/25/20 07:06 36.7 C 74 18 106/66 97 02/24/20 23:32 36.8 C 67 16 125/79 99 Code Status & VTE Plan VTE Prophylaxis Plan VTE Prophylaxis will be ordered: Yes
[2020-02-25] MEDS: DOCUSATE SODIUM 100 MG CAP PO SCH ×2 (07:58→20:52)
[2020-02-25] MEDS ORDERED: BACITRACIN INJ 50,000 UNIT VIAL ONE (08:02)
[2020-02-25] MEDS ORDERED: BUPIVACAINE/EPINEPHRINE 0.25% 1:200,000 30 ML VIAL ONE (08:02)
[2020-02-25] MEDS ORDERED: ePHEDrine sulfate 50 MG/ML AMP IV PRN (08:04)
[2020-02-25] MEDS ORDERED: HYDROmorphone INJ 1 MG/ML SYRINGE IV PRN ×2 (08:04→11:19)
[2020-02-25] MEDS ORDERED: ATROPINE SULFATE 0.1 MG/ML 10ML SYR IV PRN (08:04)
[2020-02-25] MEDS ORDERED: ONDANSETRON INJ 2 MG/ML 2 ML VIAL IV PRN ×2 (08:04→11:19)
[2020-02-25] MEDS ORDERED: ROCURONIUM BROMIDE 10 MG/ML 5 ML VIAL IV ONE (08:12)
[2020-02-25] MEDS ORDERED: MIDAZOLAM HCL 1 MG/ML 2ML VIAL ONE (08:12)
[2020-02-25] MEDS ORDERED: ONDANSETRON INJ 2 MG/ML 2 ML VIAL ONE (08:12)
[2020-02-25] MEDS ORDERED: LIDOCAINE HCL 2% 2 ML VIAL/AMP(20MG/ML) INFIL ONE (08:12)
[2020-02-25] MEDS ORDERED: PROPOFOL IV EMULSION 10 MG/ML 20 ML VIAL IV ONE (08:12)
[2020-02-25] MEDS ORDERED: fentaNYL citrate 100 MCG/2 ML VIAL ONE ×2 (08:12→08:59)
[2020-02-25] MEDS ORDERED: LABETALOL HCL IV 5 MG/ML 20ML IV PRN (08:18)
[2020-02-25] MEDS ORDERED: PHENYLEPHRINE 100MCG/ML 5ML SYR IV PRN (08:18)
--- NOTE | 2020-02-25 08:30 | Anesthesiology Consultation ---
Date of Service February 25, 2020 Covid 19 negative 02/24/20. The patient had surgery one week ago. He was a grade 2 view with a Mac 4 blade. Assessment & Plan (1) Encounter for pre-operative examination: Chart Review Chart Review: Acceptable Risk for Surgery and Patient NOT seen in Pre Admission Testing Consults Requested none History Surgery Operation Date: 02/25/20 14:30 Proposed Procedures p Repair of Durotomy - Abdulkadir Bryant, Height/Weight Height: 5 ft 11 in Weight: 87 kg Allergies Allergy/AdvReac Type Severity Reaction Status Date / Time pneumococcal vaccine Allergy Unknown SEVERE Verified 02/18/20 10:34 LYMPH NODE SWELLING trazodone Allergy Unknown Photosensit Verified 02/18/20 10:34 ivity bupropion AdvReac Unknown mood Verified 02/18/20 10:34 instability Flu Virus Vaccine Allergy Unknown SEVERE Uncoded 02/18/20 10:34 LYMPH NODE SWELLING Medications Home Medications Medication Instructions Recorded Confirmed Last Taken acetaminophen [Tylenol] 325 mg PO QID PRN 01/30/20 02/24/20 02/16/20 aripiprazole [Abilify] 15 mg PO BID 01/30/20 02/24/20 02/18/20 06:30 atorvastatin 40 mg PO HS 01/30/20 02/24/20 02/17/20 22:00 buspirone 10 mg PO TID 01/30/20 02/24/20 02/17/20 22:00 gabapentin 400 mg PO TID 01/30/20 02/24/20 02/18/20 06:30 pantoprazole 20 mg PO HS 01/30/20 02/24/20 02/17/20 22:00 sertraline [Zoloft] 200 mg PO HS 01/30/20 02/24/20 02/17/20 22:00 oxycodone 5 mg PO Q6H PRN #20 tab 02/21/20 02/24/20 Unknown tramadol 50 mg PO Q6H PRN #20 tab 02/21/20 02/24/20 Unknown Active Medications Generic Name Dose Route Start Last Admin Trade Name Freq PRN Reason Stop Dose Admin Acetaminophen 1,000 mg 02/24/20 11:03 02/24/20 23:41 Acetaminophen 500 Mg Tab PO 03/25/20 11:02 1,000 mg Q8H PRN Administration MILD Pain Rating 1,2,3 Docusate Sodium 100 mg 02/24/20 12:00 02/25/20 07:58 Docusate Sodium 100 Mg Cap PO 03/25/20 11:59 Not Given BID LINDA Lactated Ringer's 1,000 mls @ 75 mls/hr 02/24/20 11:15 02/25/20 03:09 Lr IV 03/25/20 11:14 75 mls/hr .[id number] LINDA Administration Oxycodone HCl 5 - 10 mg 02/24/20 11:03 02/25/20 05:23 Oxycodone Hcl Ir 5 Mg Tab (Immediate Release) PO 03/09/20 11:02 10 mg Q4H PRN Administration Moderate-Severe Pain NPO Date Last Intake of Fluids: 02/24/20 Time Last Intake of Fluids: 21:00 Last Intake of Fluids Comment: sip of water Date Last Intake of Solids: 02/24/20 Time Last Intake of Solids: 21:00 Last Intake of Solids Comment: oxycodone Past Medical History Medical History Asthma No inhalers- well controlled and stable COPD (chronic obstructive pulmonary disease) Controlled and stable Depression Deviated nasal septum Nasal congestion - planning on nasal surgery in the future DM type 2 (diabetes mellitus, type 2) diet controlled Fibromyalgia Chronic pain stable GERD (gastroesophageal reflux disease) Well controlled and stable Hiatal hernia History of pulmonary embolism 2-3 years ago; treated with coumadin; MTHFR- off AC x 1-2 years - no issues Hyperlipidemia IBS (irritable bowel syndrome) MTHFR mutation Follows only with PCP- no AC needed. PTSD (post-traumatic stress disorder) Tinnitus Past Family History Family History Grandmother No problems noted. Grandmother (Maternal) Esophageal cancer Grandmother (Paternal) Diabetes Other No family history of adverse response to anesthesia Past Surgical History Surgical History History of carpal tunnel release of both wrists History of colonoscopy History of esophagogastroduodenoscopy (EGD) History of lumbar surgery History of myringotomy BMT History of shoulder surgery Rt History of wisdom tooth extraction Social History Smoking Status: Current every day smoker tobacco type: cigarettes Smoking cigarettes per day: 20 Do You Dip or Chew Tobacco: No Hx Alcohol Use: Yes Alcohol type: beer alcohol intake frequency: a few times a month Hx Substance Use: No substance use type: does not use Physical Exam Vital Signs Last Vital Signs Temp 36.6 C 02/25/20 07:55 Pulse 67 02/25/20 07:55 Resp 18 02/25/20 07:55 BP 112/70 02/25/20 07:55 Pulse Ox 100 02/25/20 07:55 Testing Electrocardiogram Date: 02/05/20 Findings: + NSR @ (87)
[2020-02-25] MEDS ORDERED: GLYCOPYRROLATE 0.2 MG/ML VIAL ONE (09:05)
[2020-02-25] MEDS ORDERED: NEOSTIGMINE METHYLSULFATE 1 MG/ML 10ML VIAL ONE (09:05)
[2020-02-25] MEDS ORDERED: HYDROmorphone INJ 2 MG/ML SYR/VIAL ONE (09:09)
--- NOTE | 2020-02-25 09:59 | Operative Report ---
Post Operative Report Pre & Post Diagnosis Operation Date: 02/25/20 14:30 Pre-Op Diagnosis: Headache, spinal Post-Op Diagnosis: Headache, spinal I identified the patient and participated in the time-out.: Yes Procedure Operation Date: 02/25/20 14:30 Actual Procedures #1 lumbar laminectomy L3 with medial facetectomy on the right. #2 repair of durotomy. Surgeon Abdulkadir Bryant, Architecture Internship Tabitha Boles Estimated Blood Loss 25 Findings Consistent with Post-Op Diagnosis Specimens None Indications This is a 39-year-old male known to me the presents with marked decline in status approximately 4 days after surgery. He had symptoms and signs consistent with a spinal headache and subsequently is here for surgery. Description of Procedure Patient was met with identified informed consent obtained. Patient was then taken to the operative suite underwent intubation placed in a prone position on the Corky table on top Jean frame. All bony prominences well-padded eyes inspected to ensure no external pressure placed upon up at this point the lumbar spine was prepped and draped in a sterile fashion. Sharp dissection was performed through the previous incision. I released the fascia. Large amount of serosanguineous fluid was identified. It was evacuated completely. Upon exploration was able to identify a proximately 2 to 3 mm durotomy along the right shoulder of the L4 nerve root. I had to perform a partial laminectomy of L3 and medial facetectomy at L3-4 to adequately expose the durotomy. Once this was exposed I was able to placed a single 4-0 Nurolon suture to close the durotomy. Appeared to seal appropriately without any further CSF leak. I did place a small patch of DuraGen and DuraSeal over the repair. The incision was then copiously irrigated and closed with 1 Vicryl the fascia 2-0 Vicryl subcutaneously and 4 Monocryl for final closure. Steri-Strip sterile dressings placed. Patient will continue PACU stable condition. Please note Tabitha Boles was present at the entire procedure involved the patient positioning complex portions of the surgery and final skin closure. I attest to the content of the Intraoperative Record and any orders documented therein. Any exceptions are noted below.
[2020-02-25] MEDS: fentaNYL citrate 100 MCG/2 ML VIAL IV PRN ×2 (10:45→10:50)
[2020-02-25] MEDS ORDERED: NALOXONE HCL 0.4 MG/1 ML VIAL/CARP IV PRN (11:19)
[2020-02-25] MEDS ORDERED: MAGNESIUM HYDROXIDE SUSP 30 ML UDC PO PRN (11:19)
[2020-02-25] MEDS ORDERED: DO NOT ADMINISTER PNEUMOCOCCAL VACCINE PRN (11:19)
[2020-02-25] MEDS ORDERED: LORazepam 0.5 MG/1 ML VIAL IV PRN (11:19)
[2020-02-25] MEDS ORDERED: ONDANSETRON 4 MG OD TAB PO PRN (11:19)
[2020-02-25] MEDS ORDERED: SOD PHOSPHATE/SOD BIPHOSPHATE ENEMA 132 ML BTL PR PRN (11:19)
[2020-02-25] MEDS ORDERED: METOCLOPRAMIDE HCL INJ 5 MG/ML 2 ML VIAL IV PRN (11:19)
[2020-02-25] MEDS ORDERED: ACETAMINOPHEN 500 MG TAB PO PRN (11:19)
[2020-02-25] MEDS ORDERED: TRAMADOL HCL 50 MG TABLET PO PRN (11:19)
[2020-02-25] MEDS ORDERED: OXYCODONE HCL IR 5 MG TAB (IMMEDIATE RELEASE) PO PRN (11:19)
[2020-02-25] MEDS ORDERED: PROMETHAZINE HCL 12.5 MG in SODIUM CHLORIDE 0.9% 50 ML IV PRN (11:19)
[2020-02-25] MEDS ORDERED: ACETAMINOPHEN 1,000 MG/100 ML VIAL IV PRN (11:19)
[2020-02-25] MEDS ORDERED: FAMOTIDINE 20 MG TAB PO PRN (11:19)
[2020-02-25] MEDS ORDERED: DO NOT ADMINISTER FLU VACCINE PRN (11:19)
[2020-02-25] MEDS ORDERED: ALUMINUM/MAGNESIUM SUSP 30 ML UDC PO PRN (11:19)
[2020-02-25] MEDS ORDERED: LORazepam 0.5 MG TAB PO PRN (11:19)
[2020-02-25] MEDS ORDERED: HYDROmorphone INJ 0.5 MG/0.5 ML SYR IV PRN (11:19)
[2020-02-25] MEDS ORDERED: bisacodyL 10 MG SUPP PR PRN (11:19)
--- NOTE | 2020-02-25 11:19 | Anesthesiology Progress Note ---
Date of Service February 25, 2020 Anesthesia Post Procedure Vital Signs Vital Signs: Temp Pulse Pulse Resp BP Pulse Ox 02/25/20 11:00 36.9 C 78 14 117/67 94 02/25/20 10:50 81 12 119/73 94 02/25/20 10:40 83 12 126/77 97 02/25/20 10:30 87 12 134/83 100 02/25/20 10:20 89 15 139/86 100 02/25/20 10:13 36.8 C 95 H 8 L 150/95 H 100 02/25/20 07:55 36.6 C 67 18 112/70 100 02/25/20 07:06 36.7 C 74 18 106/66 97 02/24/20 23:32 36.8 C 67 16 125/79 99 02/24/20 14:56 36.7 C 89 16 114/69 98 Pain Intensity Lower Medial Back: Pain Intensity: 3 Bilateral Head: Pain Intensity: 3 Transfer of Care Handoff Completed per policy Notes Mental Status: alert / awake / arousable Patient Amnestic to Procedure: Yes Nausea / Vomiting: adequately controlled Pain: adequately controlled Airway Patency, RR, SpO2: stable & adequate BP & HR: stable & adequate Hydration State: stable & adequate Anesthetic Complications: no major complications apparent and Pt Satisfied with anesthetic care
[2020-02-25] MEDS ORDERED: PHARMACY GLYCEMIC MGMT CONSULT PRN (12:58)
[2020-02-25] MEDS ORDERED: DEXTROSE 50% 50 ML SYRINGE IV PRN (13:15)
[2020-02-25] MEDS ORDERED: GLUCOSE 10 TABS/TUBE PO PRN (13:15)
[2020-02-25] MEDS ORDERED: GLUCAGON FOR INJ 1 MG VIAL IM PRN (13:15)
[2020-02-25] MEDS ORDERED: GLUCOSE 40% GEL 15 GM TUBE PO PRN (13:15)
[2020-02-25] MEDS ORDERED: LANTUS PER UNIT CHARGE SQ ONE (13:15)
[2020-02-25] MEDS ORDERED: CARBOHYDRATES FOR HYPOGLYCEMIA PO PRN (13:15)
[2020-02-25] MEDS: GABAPENTIN 400 MG CAP PO SCH ×2 (13:50→20:52)
[2020-02-25] MEDS: INSULIN ASPART 100 UNITS/ML 3 ML PEN SC SCH ×3 (13:52→21:08)
--- NOTE | 2020-02-25 15:16 | Pharmacy Report ---
Pharmacy Glycemic Short Note 2 - Date of Service February 25, 2020 - Glycemic Short BSG Results (Last 24 hours): 02/25/20 02/25/20 02/25/20 08:32 10:15 12:28 POC Glucose 130 H 170 H 194 H OUTPATIENT ANTIDIABETIC REGIMEN: * n/a * HbA1c: 6.1% (02/05/20) ASSESSMENT: * Mr Dominguez is a 39yo male admitted with post-operative spinal headache. Pt went to the OR today for a procedure with Dr Bryant. * Pharmacy consulted for post-op glycemic mgmt. * Pt does not appear to have a history of diabetes or antidiabetic medications, but BSG was elevated post-op. PLAN FOR INPATIENT GLYCEMIC CONTROL: * Basal insulin * Lantus 15 units SQ x1 dose * Will re-evaluate whether additional doses are warranted pending further BSG values. * Bolus insulin * NovoLog per scale ACHS or Q6hrs while NPO * Goal Range: Low 110 mg/dL - High 140 mg/dL * Correction Factor: 30 mg/dL/unit * Nutritional / Prandial insulin per carb ratio of 1 unit per 10 grams CHO consumed PLAN FOR DISCHARGE: * Patient's A1c (6.1%) does not indicate that patient will require the addition of antidiabetic medications on discharge. * If hyperglycemia becomes persistent, may need to re-evaluate closer to time of discharge.
[2020-02-25] MEDS: CEFAZOLIN 2000MG 2,000 MG/15 ML SYR IV SCH ×2 (16:33→23:50)
[2020-02-25] MEDS: ARIPiprazole 15 MG TAB PO SCH (20:52)
[2020-02-25] MEDS: SERTRALINE HCL 100 MG TABLET PO SCH (20:52)
[2020-02-25] MEDS: DOCUSATE SODIUM/SENNA 50/8.6MG TAB PO SCH (20:52)
[2020-02-25] MEDS: PANTOprazole 40 MG TAB PO SCH (20:52)
[2020-02-25] MEDS: ATORVASTATIN 40 MG TAB PO SCH (20:52)
[2020-02-26] MEDS: OXYCODONE HCL IR 5 MG TAB (IMMEDIATE RELEASE) PO PRN ×4 (01:46→22:09)
[2020-02-26] MEDS: POLYETHYLENE (MIRALAX) 17 GM PACK PO SCH ×4 (05:00→23:35)
[2020-02-26] MEDS: LACTATED RINGER'S 1,000 ML IV SCH ×2 (07:30→17:13)
[2020-02-26] MEDS: ARIPiprazole 15 MG TAB PO SCH ×2 (09:33→20:32)
[2020-02-26] MEDS: GABAPENTIN 400 MG CAP PO SCH ×3 (09:33→20:32)
[2020-02-26] MEDS: DOCUSATE SODIUM 100 MG CAP PO SCH ×2 (09:33→20:32)
[2020-02-26] MEDS: INSULIN ASPART 100 UNITS/ML 3 ML PEN SC SCH ×4 (09:34→20:34)
--- NOTE | 2020-02-26 09:42 | Pharmacy Report ---
Pharmacy Glycemic Short Note 2 - Date of Service February 26, 2020 - Glycemic Short BSG Results (Last 24 hours): 02/25/20 02/25/20 02/25/20 10:15 12:28 17:10 POC Glucose 170 H 194 H 139 H 02/25/20 02/26/20 20:33 08:06 POC Glucose 123 H 131 H OUTPATIENT ANTIDIABETIC REGIMEN: * n/a * HbA1c: 6.1% (02/05/20) ASSESSMENT: 02/25: * Pt has received 26 units of insulin over the past 24hrs * 15 units of basal insulin with Lantus * 11 units of prandial/correctional insulin with NovoLog * BSGs [phone] mg/dl * AM fasting BSG is in goal range this AM at 131 mg/dl. Likely repeat basal insu kiesha dosing will not be needed today; was needed yesterday for post-op stress induced hyperglycemia * Post-prandial BSGs were in goal range. No changes needed to CF/CE. May have to tighten if BSGs elevate w/o basal insulin on board * Pt tolerating PO per CHO counts * Goal is to maintain BSGs <200 mg/dl (ideally less than 150 mg/dl) to prevent post op infectious complications 02/24: * Mr Dominguez is a 39yo male admitted with post-operative spinal headache. Pt went to the OR today for a procedure with Dr Bryant. * Pharmacy consulted for post-op glycemic mgmt. * Pt does not appear to have a history of diabetes or antidiabetic medications, but BSG was elevated post-op. PLAN FOR INPATIENT GLYCEMIC CONTROL: * Basal insulin * Hold today- will give a small dose (10-15 units) if BSG > 180 * Bolus insulin: no change * NovoLog per scale ACHS or Q6hrs while NPO * Goal Range: Low 110 mg/dL - High 140 mg/dL * Correction Factor: 30 mg/dL/unit * Nutritional / Prandial insulin per carb ratio of 1 unit per 10 grams CHO consumed PLAN FOR DISCHARGE: * Patient's A1c (6.1%) does not indicate that patient will require the addition of antidiabetic medications on discharge. * If hyperglycemia becomes persistent, may need to re-evaluate closer to time of discharge.
--- NOTE | 2020-02-26 11:25 | Orthopedic Progress Note ---
Date of Service February 26, 2020 Assessment & Plan (1) Headache, spinal, postoperative: Admission and Anticipated Discharge Date Admission Date: February 24, 2020 Patient status post durotomy repair. We are going to maintain bedrest today. Assess his progress in the morning and hopefully begin transfers from bed to chair. Subjective Back pain controlled denies any headache nausea or vomiting or leg pain. Physical Exam Physical Exam: On exam is good strength testing appears comfortable. Results & Data ([facility]) Vital Signs (Past 12 Hours) Vital Signs Temp Pulse Resp BP Pulse Ox 02/26/20 07:12 36.8 C 70 18 120/74 97 02/26/20 03:01 36.8 C 63 16 109/66 94
[2020-02-26] MEDS: ATORVASTATIN 40 MG TAB PO SCH (20:32)
[2020-02-26] MEDS: SERTRALINE HCL 100 MG TABLET PO SCH (20:32)
[2020-02-26] MEDS: DOCUSATE SODIUM/SENNA 50/8.6MG TAB PO SCH (20:32)
[2020-02-26] MEDS: PANTOprazole 40 MG TAB PO SCH (20:32)
[2020-02-27] MEDS: OXYCODONE HCL IR 5 MG TAB (IMMEDIATE RELEASE) PO PRN ×5 (03:17→23:50)
[2020-02-27] MEDS: POLYETHYLENE (MIRALAX) 17 GM PACK PO SCH ×2 (05:01→13:05)
[2020-02-27] MEDS: ACETAMINOPHEN 500 MG TAB PO PRN (05:04)
[2020-02-27] MEDS: DOCUSATE SODIUM 100 MG CAP PO SCH ×2 (09:15→20:14)
[2020-02-27] MEDS: GABAPENTIN 400 MG CAP PO SCH ×3 (09:15→20:14)
[2020-02-27] MEDS: ARIPiprazole 15 MG TAB PO SCH ×2 (09:15→20:13)
[2020-02-27] MEDS: INSULIN ASPART 100 UNITS/ML 3 ML PEN SC SCH ×4 (09:17→21:20)
--- NOTE | 2020-02-27 11:44 | Orthopedic Progress Note ---
Date of Service February 27, 2020 Assessment & Plan (1) Headache, spinal, postoperative: Admission and Anticipated Discharge Date Admission Date: February 24, 2020 We will begin bed to chair transfers ambulate in the room today. If he tolerates this without difficulty today we may consider discharge home this weekend. Subjective Patient's back pain is well controlled denies any leg pain nausea vomiting or headache. He has been tolerating sitting up in bed without difficulty. Physical Exam Physical Exam: On exam is good strength testing peers comfortable. Results & Data ([facility]) Vital Signs (Past 12 Hours) Vital Signs Temp Pulse Resp BP Pulse Ox 02/27/20 07:03 36.7 C 66 18 106/65 96
--- NOTE | 2020-02-27 12:41 | Pharmacy Report ---
Pharmacy Glycemic Short Note 2 - Date of Service February 27, 2020 - Glycemic Short BSG Results (Last 24 hours): 02/26/20 02/26/20 02/27/20 17:10 20:29 08:45 POC Glucose 155 H 172 H 153 H 02/27/20 12:06 POC Glucose 203 H OUTPATIENT ANTIDIABETIC REGIMEN: * n/a * HbA1c: 6.1% (02/05/20) ASSESSMENT: * Pt has received 18 units of bolus insulin over the past 24hrs. He did not receive any basal insulin yesterday. * AM fasting BSG was elevated at 153 mg/dl. * Post prandial BSGs have been elevated as well. Today lunch BSG is over 200. * Goal is to maintain BSGs <200 mg/dl (ideally less than 150 mg/dl) to prevent post op infectious complications * Therefore, Novolog CF and CR was tightened. Will also add a single dose of Lantus based on wt and stress factor of 1. PLAN FOR INPATIENT GLYCEMIC CONTROL: * Basal insulin * Lantus 10 units x1 since BSG greater than 180 at noon. * Bolus insulin: tightened CF and CR * NovoLog per scale ACHS or Q6hrs while NPO * Goal Range: Low 110 mg/dL - High 140 mg/dL * Correction Factor: 20 mg/dL/unit * Nutritional / Prandial insulin per carb ratio of 1 unit per 8 grams CHO consumed PLAN FOR DISCHARGE: * Patient's A1c (6.1%) does not indicate that patient will require the addition of antidiabetic medications on discharge. * If hyperglycemia becomes persistent, may need to re-evaluate closer to time of discharge.
[2020-02-27] MEDS ORDERED: LANTUS PER UNIT CHARGE SQ ONE (13:00)
[2020-02-27] MEDS: ATORVASTATIN 40 MG TAB PO SCH (20:14)
[2020-02-27] MEDS: DOCUSATE SODIUM/SENNA 50/8.6MG TAB PO SCH (20:14)
[2020-02-27] MEDS: SERTRALINE HCL 100 MG TABLET PO SCH (20:14)
[2020-02-27] MEDS: PANTOprazole 40 MG TAB PO SCH (20:14)
[2020-02-28] MEDS: OXYCODONE HCL IR 5 MG TAB (IMMEDIATE RELEASE) PO PRN ×2 (04:44→10:09)
[2020-02-28] MEDS: DOCUSATE SODIUM 100 MG CAP PO SCH (08:40)
[2020-02-28] MEDS: GABAPENTIN 400 MG CAP PO SCH ×2 (08:40→12:23)
[2020-02-28] MEDS: ARIPiprazole 15 MG TAB PO SCH (08:40)
[2020-02-28] MEDS: INSULIN ASPART 100 UNITS/ML 3 ML PEN SC SCH ×2 (08:41→12:24)
--- NOTE | 2020-02-28 10:52 | Discharge Summary ---
Date of Service February 28, 2020 Admission HPI Per Admitting Provider This is a 39-year-old male well-known to me the presents with severe headache postop day 3. He had undergone lumbar decompression and fusion L for 5 L5-S1. This was a revision procedure. He had done very nicely postoperatively and was discharged postop day 3 without issue. That evening he began experiencing severe postural occipital and frontal headaches. He gets some relief with lying supine. He denied any significant back pain or radicular complaints. I seen in my office yesterday morning confirmed suspicion for headache related to CSF leak and promptly admitted the patient to the hospital for I&D and exploration of the surgical bed. Principal Diagnosis Postoperative spinal headache with durotomy Discharge Data Allergies Allergy/AdvReac Type Severity Reaction Status Date / Time pneumococcal vaccine Allergy Unknown SEVERE Verified 02/18/20 10:34 LYMPH NODE SWELLING trazodone Allergy Unknown Photosensit Verified 02/18/20 10:34 ivity bupropion AdvReac Unknown mood Verified 02/18/20 10:34 instability Flu Virus Vaccine Allergy Unknown SEVERE Uncoded 02/18/20 10:34 LYMPH NODE SWELLING Consultations 02/25/20 11:19 Consult Case Management - Discharge Planning Routine Procedures Performed Operation Date: 02/25/20 14:30 Actual Procedures p Repair of Durotomy(Not Applicable) - Abdulkadir Bryant DO Ordered Studies 02/24/20 11:05 MR lumbar spine wo/w con Urgent Hospital Course (1) Neurogenic claudication due to lumbar spinal stenosis: Patient underwent I&D lumbar spine and repair of durotomy. He tolerated this well. Postop day 1 he underwent bedrest postop day #2 was up and beginning transitions to chair and ambulating. He progressed the postop day 3. No headaches leg symptoms improved no significant back pain subsequently discharged home. Discharge orders instructions from chart for further review. Total Time Total Time Spent Total Time Spent (In Minutes): 20 minutes Discharge Plan Discharge Items Patient Disposition: Home - Self-Care Reason For Visit: POST OP HEADACHE Discharge Diagnosis: Postop spinal headache. Activity: As commented below Non-emergency contact: Primary Care Provider Call non-emergency contact if: you have any medication questions Follow-up/Referrals: Steven Hubbard [Primary Care Provider] - Diet: Regular Addtl Attending Provider Instructions: ACTIVITY RECOMMENDATIONS: SELF CARE INSTRUCTIONS AFTER THORACIC/LUMBAR FUSIONS 1. You may walk to your tolerance. It is good exercise for your legs and back. Expect some back and intermittent leg aches and pains. 2. You may perform "counter-top" level activities (make a sandwich, jovani with a project, etc.). 3. No bending or lifting of more than 10 pounds or back twisting of any nature (roll like a log when turning in bed). 4. You may ride in a car for 20-30 minutes at a time. No driving until after your first visit with your doctor. 5. Frequent changes of position and restricting sitting to 30 minutes at a time will help limit the amount of back spasms and stiffness you may experience. 6. You may discontinue the use of ambulatory aids (cane, crutches, etc.) once your strength and confidence allow. 7. You may sales and training specialist the shower and let water strike your incision when you arrive home at least once daily. Do not take a tub bath, sit in a hot tub or go into a swimming pool until after your first recheck in the office. SPECIAL CARE INSTRUCTIONS: VERY IMPORTANT TO READ AND REVIEW A. Your surgical incision has been closed with a cosmetic suture under the skin that will dissolve in about 6 weeks. In 14 days, you can use a pair of clean scissors and cut the suture that is left outside of the skin at the ends of your incision. 1. The small skin tapes can be removed 7 days after surgery if they have not fallen off by that point. 2. You may keep the wound open to air as much as possible to promote healing after post-op day number 5 unless told otherwise by your doctor. 3. If you think the wound looks like it is becoming infected (redness or worsening drainage) and/or you are experiencing fever, chill or worsening back pain and muscle spasms, contact the office so that we may evaluate you as soon as possible. B. Complications are uncommon, but please contact us if you have any signs or symptoms of: 1. wound infection (fever higher than 102.5 degrees F, redness, separation of wound, drainage, or increasing pain from the incision) 2. blood clots in legs (pain, swelling, redness and warmth in legs) 3. urinary tract infection (fever higher than 102.5 degrees F, burning upon urination or increased frequency of urination) 4. nerve problems (inability to walk on your toes or heels, numbness, loss of bowel or bladder control) 5. any other symptoms that concern you C. Please call the office at if you have any concerns or questions about your operation or recovery. D. No smoking! Smoking drastically decreases the chance of a solid fusion. E. Do not take any anti-inflammatory medications (Indocin, Advil, Motrin, Aspirin, Naprosyn, etc.) as these may inhibit the chance of a solid fusion. Tylenol is okay to take for pain. MANAGING PAIN AFTER SPINAL SURGERY 1. Narcotic medication is intended for short-term use and will be provided for surgical pain. Surgical pain usually lasts for a period of 4-6 weeks. Narcotic medication includes Percocet, Vicodin, Darvocet, Tylenol #3 or Lortab. 2. Longer-term pain is more appropriately treated with non-narcotic medication such as Tylenol ES. 3. Muscle spasm is not appropriately treated with narcotics. Muscle relaxers such as Soma, Flexeril or Skelaxin can be used along with Tylenol ES. 4. Remember that we all live with some "aches and pains". This is not unusual or uncommon after an injury or as we get older. a. Back pain is expected and may include muscle spasms for 4 to 6 weeks after surgery. The pain should gradually improve. If the pain worsens for no apparent reason, please contact the office. b. Intermittent leg pain may also be experienced and should not be concerned about unless it worsens for no apparent reason. If so, please contact the office. 5. We will provide appropriate medication within the normal guidelines of their prescribed use. We will also be very cautious and aware of potential abuse and extended duration of patients' medication needs. a. Pain medications are for your comfort and to assist with sleep and rest so that the tissue can heal. They are not provided in order to return to normal activity and should not be used through the day. To do so or worsening pain at night can result from ongoing tissue damage and development of tolerance to the prescribed medicine. 6. Please allow 2-3 days to process refills. Prescriptions will not be mailed but must be picked up at the office. FOLLOW UP VISIT: Keep your scheduled follow-up appointment. Any questions, please call the office at . Pending Studies at Discharge: No Stand-Alone Forms: My [facility], Smoking Cessation Medications and DC Order Prescriptions: New oxycodone 5 mg tablet 5 mg PO Q6H PRN (Reason: pain, severe) Qty: 20 RF: 0 Continued atorvastatin 40 mg Tablet 40 mg PO HS RF: 0 acetaminophen [Tylenol] 325 mg Tablet 325 mg PO QID PRN (Reason: Pain) RF: 0 gabapentin 400 mg Capsule 400 mg PO TID RF: 0 sertraline [Zoloft] 100 mg Tablet 200 mg PO HS RF: 0 pantoprazole 20 mg Tablet,Delayed Release (Dr/Ec) 20 mg PO HS RF: 0 buspirone 10 mg Tablet 10 mg PO TID RF: 0 aripiprazole [Abilify] 15 mg Tablet 15 mg PO BID RF: 0 tramadol 50 mg tablet 50 mg PO Q6H PRN (Reason: pain, moderate) Qty: 20 RF: 0 oxycodone 5 mg tablet 5 mg PO Q6H PRN (Reason: pain, severe) Qty: 20 RF: 0 Discharge Orders: Discharge Order (Routine); Ordered 02/28/20 Ordered By: Abdulkadir Bryant Admission Data Admit Date/Time: 02/24/20 10:45 Attending Provider: Abdulkadir Bryant Admit Provider: Abdulkadir Bryant Primary Care Provider: Steven Hubbard
== END 2020-02-28 13:47 | disposition home or self-care (01) | DRG 30 ==
LOC: 3W 10:45